=== PATIENT | female | born 1995 | race Caucasian/White ===

== ENCOUNTER 2016-11-21 06:24 | Emergency (ER) | payer MEDICAID ==
[~2016-11-21 06:24] MED LIST: CALCIUM 600+D T1 TA1 PO; MIRALAX17 GM PO; PRILOSEC20 MG PO
== END 2016-11-21 07:02 | disposition home or self-care (01) ==
LOC: D.ER 06:24
DX: J01.90 Acute sinusitis, unspecified (principal)

== ENCOUNTER 2017-09-01 06:45 | Emergency (ER) | payer MEDICAID | END 2017-09-01 08:15 | disposition home or self-care (01) | LOC: D.ER 06:45 | DX: J02.0 Streptococcal pharyngitis (principal); F17.200 Nicotine dependence, unspecified, uncomplicated ==

== ENCOUNTER 2017-12-13 20:41 | Emergency (ER) | payer MEDICAID | END 2017-12-13 22:13 | disposition home or self-care (01) | LOC: D.ER 20:41 | DX: K08.89 Other specified disorders of teeth and supporting structures (principal); K04.7 Periapical abscess without sinus ==

== ENCOUNTER 2018-01-01 12:07 | Emergency (ER) | payer SELFPAY ==
[2018-01-01 13:13] LABS: APPEARANCE HAZY (CLEAR); BILIRUBIN 2+ (NEGATIVE); COLOR DK YELLOW (YELLOW); GLUCOSE NEGATIVE (NEGATIVE); KETONE NEGATIVE (NEGATIVE); NITRITE NEGATIVE (NEGATIVE); PROTEIN TRACE mg/dL (NEGATIVE); SPECIFIC GRAVITY 1.025 (1.005-1.020)
[2018-01-01 13:20] LABS: BACTERIA MODERATE /hpf (NONE SEEN); EPITHELIAL CELLS 0-5 /hpf (0-5); MUCUS >1+ /lpf (NONE SEEN); WHITE CELLS - URINE >50 /hpf (0-5)
[2018-01-01 14:06] LABS: BASOPHILS 0.1 % (0-2); EOSINOPHILS 0.4 % (0-7); HEMATOCRIT 50.8 % (36.0-48.0); HEMOGLOBIN 17.6 g/dL (12-16); IMMATURE GRANULOCYTES 0.3 % (0-5); LYMPHOCYTES 7.6 % (15-50); MCH 32.7 pg (26.0-34.0); MCHC 34.6 g/dL (31.0-37.0); MCV 94.4 fL (80.0-100.0); MEAN PLATELET VOLUME 9.8 fL (7.4-10.4); MONOCYTES 7.4 % (2-11); NEUTROPHILS 84.2 % (40-80); RBC 5.38 10x6/uL (4.00-5.40); RDW 13.6 % (11.5-14.5); WBC 19.4 10x3/uL (4.8-10.8)
[2018-01-01 14:11] LABS: PLATELET COUNT 298 10x3/uL (130-400)
[2018-01-01 14:28] LABS: ALBUMIN 3.6 g/dL (3.4-5.0); ALKALINE PHOSPHATASE 127 U/L (46-116); ALT (SGPT) 32 U/L (10-68); BILIRUBIN - TOTAL 0.89 mg/dL (0.2-1.3); CALC OSMOLALITY 270 mosm/kg (275-300); CALCIUM 9.3 mg/dL (8.5-10.1); CARBON DIOXIDE 26.8 mmol/L (21.0-32.0); CHLORIDE - SERUM 102 mmol/L (98-107); CREATININE - SERUM 0.9 mg/dL (0.6-1.3); GLUCOSE 84 mg/dL (74-106); POTASSIUM - SERUM 3.5 mmol/L (3.5-5.1); PROTEIN - SERUM 7.9 g/dL (6.4-8.2); SODIUM 137 mmol/L (136-145); UREA NITROGEN 6 mg/dL (7-18); eGFR NON AFRICAN AMERICAN 83 mL/min (90-120)
[2018-01-01 14:30] LABS: HCG URINE NEGATIVE (NEGATIVE)
== END 2018-01-01 17:07 | disposition home or self-care (01) ==
LOC: D.ER 12:07
PROVIDERS: Family Medicine; Nurse Practitioner Family
DX: N10 Acute pyelonephritis (principal); F17.200 Nicotine dependence, unspecified, uncomplicated

== ENCOUNTER 2018-02-19 18:24 | Emergency (ER) | payer SELFPAY ==
[~2018-02-19] VITALS: Ht 175.3 cm; Wt 86.4 kg
[2018-02-19 18:43] VITALS: Ht 175.3 cm; Wt 86.4 kg
[2018-02-19 19:03] LABS: BASOPHILS 0.1 % (0-2); HEMATOCRIT 46.8 % (36.0-48.0); HEMOGLOBIN 16.2 g/dL (12-16); IMMATURE GRANULOCYTES 0.2 % (0-5); LYMPHOCYTES 17.6 % (15-50); MCH 32.5 pg (26.0-34.0); MCHC 34.6 g/dL (31.0-37.0); MEAN PLATELET VOLUME 9.8 fL (7.4-10.4); NEUTROPHILS 74.1 % (40-80); PLATELET COUNT 283 10x3/uL (130-400); RBC 4.98 10x6/uL (4.00-5.40); RDW 13.1 % (11.5-14.5); WBC 12.5 10x3/uL (4.8-10.8)
[2018-02-19 19:07] LABS: APPEARANCE HAZY (CLEAR); BILIRUBIN NEGATIVE (NEGATIVE); COLOR YELLOW (YELLOW); GLUCOSE NEGATIVE (NEGATIVE); KETONE NEGATIVE (NEGATIVE); NITRITE NEGATIVE (NEGATIVE); PROTEIN NEGATIVE (NEGATIVE); UROBILINOGEN NORMAL (NORMAL)
[2018-02-19 19:10] LABS: AMORPHOUS SEDIMENT >1+ /lpf (NONE SEEN); BACTERIA FEW /hpf (NONE SEEN); EPITHELIAL CELLS 0-5 /hpf (0-5); WHITE CELLS - URINE 0-5 /hpf (0-5)
[2018-02-19 19:24] LABS: ALBUMIN 3.7 g/dL (3.4-5.0); ALKALINE PHOSPHATASE 107 U/L (46-116); ALT (SGPT) 31 U/L (10-68); BILIRUBIN - TOTAL 0.29 mg/dL (0.2-1.3); CALC OSMOLALITY 281 mosm/kg (275-300); CALCIUM 9.2 mg/dL (8.5-10.1); CARBON DIOXIDE 25.6 mmol/L (21.0-32.0); CHLORIDE - SERUM 106 mmol/L (98-107); CREATININE - SERUM 0.8 mg/dL (0.6-1.3); GLUCOSE 105 mg/dL (74-106); POTASSIUM - SERUM 3.8 mmol/L (3.5-5.1); PROTEIN - SERUM 7.8 g/dL (6.4-8.2); SODIUM 143 mmol/L (136-145); UREA NITROGEN 5 mg/dL (7-18); eGFR NON AFRICAN AMERICAN > 90 mL/min (90-120)
[2018-02-19 21:11] VITALS: BP 123/67
== END 2018-02-19 21:11 | disposition home or self-care (01) ==
LOC: D.ER 18:24
PROVIDERS: Emergency Medicine
DX: R53.1 Weakness (principal); F17.200 Nicotine dependence, unspecified, uncomplicated

== ENCOUNTER 2019-02-03 20:23 | Emergency (ER) | payer MEDICAID ==
[~2019-02-03] VITALS: Ht 175.3 cm; Wt 89.5 kg
[2019-02-03 20:40] VITALS: Ht 175.3 cm; Wt 89.5 kg
[2019-02-03] MEDS ORDERED: HYDROCODON-ACE1 EAC2 PO (22:45)
[2019-02-03] MEDS ORDERED: NEURONTIN 300300 MG PO (22:45)
[2019-02-03] MEDS ORDERED: CLEOCIN HCL300 MG PO (22:45)
[2019-02-03 23:14] VITALS: BP 134/78
== END 2019-02-03 23:16 | disposition home or self-care (01) ==
LOC: D.ER 20:23
PROVIDERS: Emergency Medicine
DX: R21 Rash and other nonspecific skin eruption (principal); L98.8 Other specified disorders of the skin and subcutaneous tissue

== ENCOUNTER 2019-04-09 09:26 | Emergency (ER) | payer MEDICAID ==
[~2019-04-09] VITALS: Ht 175.3 cm; Wt 91.8 kg
[~2019-04-09 09:26] MED LIST changes: +CLEOCIN HCL300 MG PO; +HYDROCODON-ACE1 EAC2 PO; +NEURONTIN 300300 MG PO
[2019-04-09 09:30] VITALS: Ht 175.3 cm; Wt 91.8 kg
[2019-04-09] MEDS ORDERED: NAPROSYN500 MG PO (09:49)
[2019-04-09 10:18] VITALS: BP 111/76
== END 2019-04-09 10:19 | disposition home or self-care (01) ==
LOC: D.ER 09:26
DX: S93.402A Sprain of unspecified ligament of left ankle, initial encounter (principal); W17.89XA Other fall from one level to another, initial encounter; Y93.89 Activity, other specified; Y92.019 Unspecified place in single-family (private) house as the place of occurrence of the external cause